=== PATIENT | female | born 1955 | race African-American/Black ===

== ENCOUNTER 2019-03-02 21:24 | Emergency (ER) | payer MEDICARE ==
[~2019-03-02] VITALS: Ht 157.5 cm; Wt 58.0 kg
[2019-03-02] MEDS ORDERED: SODIUM CHLORIDE 0.9% 1,000 ML IV ONE (22:29)
[2019-03-02] MEDS ORDERED: KETOROLAC 30MG/ML VIAL IV STA (22:29)
[2019-03-02] MEDS ORDERED: DIAZEPAM 2 MG TABLET PO ONE (22:30)
[2019-03-02 23:52] LABS: BASOPHILS % 0.6 % (0.0-2.0); EOSINOPHILS % 4.6 % (0.0-5.0); HEMATOCRIT. 37.6 % (36.0-48.0); HEMOGLOBIN. 11.9 g/dL (12.0-16.0); LYMPHOCYTES % 36.5 % (20.0-50.0); MEAN CORPUSCULAR HEMOGLOBIN 22.1 pg (28.0-32.0); MEAN CORPUSCULAR VOLUME 69.9 fL (81.0-99.0); MEAN PLATELET VOLUME 8.5 fl (7.4-10.4); MONOCYTES % 9.5 % (2.0-8.0); NEUTROPHILS % 48.8 % (40.0-76.0); PLATELET 226 x1000/uL (130-400); RED BLOOD CELL COUNT 5.39 mill/uL (4.2-5.4); RED CELL DISTRIBUTION WIDTH 16.8 % (11.6-14.6)
[2019-03-02 23:53] LABS: CHLORIDE 111 mEq/L (98-107)
[2019-03-02 23:54] LABS: PLATELET ESTIMATE NORMAL
[2019-03-03 02:11] VITALS: BP 105/57
== END 2019-03-03 02:05 | disposition home or self-care (01) ==
LOC: ER 21:24
DX: M79.605 Pain in left leg (principal); M79.604 Pain in right leg; I10 Essential (primary) hypertension; L93.2 Other local lupus erythematosus; F17.290 Nicotine dependence, other tobacco product, uncomplicated; Z86.718 Personal history of other venous thrombosis and embolism
CPT/HCPCS: 36415; 80053; 85025; 93970; 96374; 99284; 99406; J1885; J7030